=== PATIENT | female | born 1970 | race Caucasian/White ===

== ENCOUNTER → 2016-10-15 | Outpatient (CLI) | payer OTHER | LOC: LBRF 16:44 | DX: N30.00 Acute cystitis without hematuria (principal) | CPT/HCPCS: 87077; 87086; 87186 ==

== ENCOUNTER → 2016-11-12 | Outpatient (CLI) | payer OTHER | LOC: KOH-I 15:33 | DX: R22.41 Localized swelling, mass and lump, right lower limb (principal); R60.0 Localized edema | CPT/HCPCS: 73562 ==

== ENCOUNTER 2016-11-19 15:39 | Emergency (ER) | payer OTHER | END 2016-11-19 18:22 | disposition home or self-care (01) | LOC: ER1 15:39 | DX: S16.1XXA Strain of muscle, fascia and tendon at neck level, initial encounter (principal); S20.219A Contusion of unspecified front wall of thorax, initial encounter; R51 Headache; M54.9 Dorsalgia, unspecified; F17.200 Nicotine dependence, unspecified, uncomplicated; Z88.1 Allergy status to other antibiotic agents; V43.52XA Car driver injured in collision with other type car in traffic accident, initial encounter; Y93.89 Activity, other specified; Y92.410 Unspecified street and highway as the place of occurrence of the external cause | CPT/HCPCS: 70450; 71010; 72125; 72128; 84703; 99284 ==

== ENCOUNTER → 2016-11-24 | Outpatient (CLI) | payer OTHER | LOC: RAD 12:43 | DX: M25.512 Pain in left shoulder (principal) | CPT/HCPCS: 73030 ==

== ENCOUNTER → 2016-12-01 | Outpatient (CLI) | payer OTHER | LOC: KOH-I 09:30 | DX: M25.561 Pain in right knee (principal); M23.91 Unspecified internal derangement of right knee; M17.11 Unilateral primary osteoarthritis, right knee | CPT/HCPCS: 73721 ==